=== PATIENT | female | born 1995 | race African-American/Black ===

== ENCOUNTER 2021-01-30 20:31 | Emergency (ER) | payer SELFPAY ==
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
== END 2021-01-30 21:18 | disposition left against medical advice (07) ==
LOC: ER 20:31
DX: Z53.21 Procedure and treatment not carried out due to patient leaving prior to being seen by health care provider (principal)

== ENCOUNTER 2022-05-13 12:34 | Emergency (ER) | payer BC ==
[~2022-05-13] VITALS: Ht 177.8 cm; Wt 65.8 kg
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
[2022-05-13] MEDS ORDERED: IBUP-1955 PO (14:29)
[2022-05-13] MEDS ORDERED: CYCL10TA9 PO (14:29)
[2022-05-13] MEDS ORDERED: IBUPROFEN 600 MG TABLET PO ONE (14:30)
--- NOTE | 2022-05-13 14:30 | NUR ---
Soft neck collar placed. Fit perfectly and well tolerated.
[2022-05-13] MEDS ORDERED: IBUPROFEN 600 MG TABLET ONE (14:33)
--- NOTE | 2022-05-13 14:36 | NUR ---
Patient discharged to home in stable condition. Written and verbal after care instructions given. Patient verbalizes understanding of instructions. Stressed follow up or return to ER for worsening s/s.
[2022-05-13 14:38] VITALS: BP 124/75
== END 2022-05-13 14:39 | disposition home or self-care (01) ==
LOC: ER 12:36
DX: S16.1XXA Strain of muscle, fascia and tendon at neck level, initial encounter (principal); S09.90XA Unspecified injury of head, initial encounter; V49.40XA Driver injured in collision with unspecified motor vehicles in traffic accident, initial encounter; Y92.410 Unspecified street and highway as the place of occurrence of the external cause
CPT/HCPCS: 72050; A4663